=== PATIENT | male | born 1960 | race Caucasian/White ===

== ENCOUNTER 2018-03-24 13:31 | Observation (INO) | payer OTHER ==
[~2018-03-24] VITALS: Ht 177.8 cm; Wt 80.3 kg
[~2018-03-24 13:31] MED LIST: COZAAR 25 MG TA25 M1 PO; HUMALOG100 UNIT/1 SUBQ; LANTUS SUBQ; PERCOCET 5-3251 EACH PO; SIMVASTATIN5 MG
[2018-03-24 13:33] VITALS: BP 177/89
[2018-03-24] MEDS ORDERED: ZOCOR20 MG PO (13:38)
[2018-03-24 13:49] LABS: ABSOLUTE BASOPHILS 0.1 thou/uL (0.0-0.2); ABSOLUTE LYMPHOCYTES 1.7 thou/uL (0.8-5.3); ABSOLUTE MONOCYTES 0.5 thou/uL (0.0-1.2); ABSOLUTE NEUTROPHILS 8.7 thou/uL (1.6-8.1); BASOPHILS 0.6 %; EOSINOPHILS 0.4 %; HEMATOCRIT 42.3 % (42.0-52.0); HEMOGLOBIN 14.7 gm/dL (14.0-18.0); LYMPHOCYTES 15.5 %; MCH 34.7 pg (26.0-34.0); MCHC 34.8 g/dL (28.0-37.0); MONOCYTES 4.5 %; NUCLEATED RBCS 0 /100WBC; PLATELET COUNT* 298 thou/uL (150-400); RBC 4.23 mil/uL (4.50-6.00); RDW-CV 12.6 % (10.5-14.5)
[2018-03-24 13:58] LABS: ANION GAP 9 mmol/L (7-16); BUN 10 mg/dL (7-18); CALCIUM 9.3 mg/dL (8.5-10.1); CHLORIDE 107 mmol/L (98-107); CO2 27 mmol/L (21-32); CREATININE 0.8 mg/dL (0.6-1.3); GLUCOSE 146 mg/dL (70-99); POTASSIUM 3.8 mmol/L (3.5-5.1); SODIUM 143 mmol/L (136-145)
[2018-03-24 14:02] LABS: APTT 29.5 Seconds (25.0-31.3); INR 1.1; PROTIME 10.8 Seconds (9.20-11.50)
[2018-03-24 14:18] LABS: ALBUMIN 3.7 g/dL (3.4-5.0); ALKALINE PHOSPHATASE 60 U/L (46-116); CK-MB MASS 1.5 ng/mL (<0.5-3.6); LIPASE 35 U/L (73-393); MAGNESIUM 1.5 mg/dL (1.8-2.4); NT-PRO BRAIN NAT PEPTIDE 193 pg/mL (<300); SGOT 16 U/L (15-37); SGPT 24 U/L (30-65); TOTAL BILIRUBIN 0.5 mg/dL (<0.1-1.0); TOTAL PROTEIN 7.4 g/dL (6.4-8.2); TROPONIN-I LEVEL <0.06 ng/mL (<0.06)
[2018-03-24 15:16] VITALS: BP 136/80
[2018-03-24 15:30] VITALS: BP 149/76
[2018-03-24] MEDS ORDERED: METFORMIN HCL500 MG PO (15:49)
--- NOTE | 2018-03-24 16:03 | EKG ---
[place] [address] ELECTROCARDIOGRAM REPORT Name: TERRY SLATER Room: [address] IN [facility].#: [id number] Admission: 03/24/18 Attend Phys: Meme Barajas MD Discharge: Date of : 56 Report #: [id number] THIS REPORT FOR: //name// [facility] ED Test Date: 2018-03-24 Test Time: 13:34:30 Pat Name: TERRY SLATER Department: Room: Gender: Manager File: Mo HAYWOOD : 1960 Requested By: Jose Davidson Order Number: [id number] MD: Shiva Villafuerte Measurements Intervals [place] Rate: 77 P: 36 SC: 145 QRS: 48 QRSD: 104 T: -33 QT: 412 QTc: 467 Interpretive Statements Sinus rhythm Possible left atrial enlargement RSR' in V1 or V2, right VCD or RVH Borderline T abnormalities, inferior leads Compared to ECG 12/18/2010 07:40:46 Right ventricular hypertrophy now present RSR' in V1 or V2 now present Possible ischemia no longer present T-wave abnormality still present Electronically Signed On 03-24-2018 16:02:53 CDT by Shiva Villafuerte [email or web address] <ELECTRONICALLY SIGNED> By: Shiva Villafuerte MD, [facility] 03/24/18 1602 1334 1334 Shiva Villafuerte MD, [facility] /EPI
--- NOTE | 2018-03-24 17:10 | NUR ---
RECEIEVED REPORT FROM [facility] IN ED AND ASSUMED CARE OF PT @ 1530.PT IS A/O,VSS,TRACING SR ON THE MONITOR.LUNG SOUNDS ARE CLEAR.LAST BM WAS TODAY.IV LEFT AC PATENT AND SALINE LOCKED.PT IS CALM AND COOPERATIVE WITH NO C/O PAIN AT TIME OF ASSESSMENT.PT IS UP AD ROLAND IN ROOM.CALL LIGHT WITHIN REACH.WILL CONTINUE TO MONITOR.PT NPO STATUS UNTIL SEEN BY CARDIOLOGY.PT INFORMED OF PLAN OF CARE AND COMMUNICATES UNDERSTANDING.HOURLY ROUNDING COMPLETED FOR PT SAFETY.WILL CONTINUE TO MONITOR FOR DURATION OF SHIFT.
[2018-03-24 19:52] VITALS: BP 135/81
[2018-03-25] VITALS: BP 141/87
[2018-03-25 02:03] LABS: CHOLESTEROL 106 mg/dL (<200); HDL CHOLESTEROL 31 mg/dL (>40); LDL CHOLESTEROL 49 mg/dL (<100); TC:HDL 3.4 Ratio (Not establshd); TRIGLYCERIDE 130 mg/dL (<150); VLDL 26 mg/dL (<40)
[2018-03-25 02:04] LABS: SERUM ASSESSMENT Clear
[2018-03-25 04:00] VITALS: BP 140/77
--- NOTE | 2018-03-25 06:48 | NUR ---
Pt reports he is eager to get testing done today. No complaints overnight. VSS. NPO since MN. Will continue to monitor.
[2018-03-25 08:53] VITALS: BP 140/77
--- NOTE | 2018-03-25 11:41 | EKG ---
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: [place] : 1960 Requested By: Jose Davidson Order Number: [id number] MD: Payam Sosa Measurements Intervals [place] Rate: 61 P: 47 MS: 145 QRS: 62 QRSD: 113 T: -4 QT: 450 QTc: 454 Interpretive Statements Sinus rhythm Probable left atrial enlargement Borderline intraventricular conduction delay Compared to ECG 03/24/2018 13:34:30 no change Electronically Signed On 03-25-2018 11:40:49 CDT by Payam Sosa [email or web address] <ELECTRONICALLY SIGNED> By: Payam Sosa MD, [facility] 03/25/18 1140 38 38 Payam Sosa MD, [facility] /EPI
[2018-03-25 12:20] VITALS: BP 141/88
--- NOTE | 2018-03-25 12:22 | CARDNUC ---
[place] [address] CARDIAC NUCLEAR IMAGING REPORT Name: TERRY SLATER Room: [facility] IN [facility]#: [id number] Admission: 03/24/18 Attend Phys: Meme Barajas, Discharge: Date of : 56 Date of Service: 03/25/18 1222 Report #: [id number] THIS REPORT FOR: //name// APPROVED REPORT Study performed: 03/24/2018 17:54:00 Indication: Chest pain Patient Location: In-Patient Room #: 221 Stress Tech: Francheska Lanier Stress Nurse: Gricelda Orozco RN Ht: 5 ft 10 in Wt: 190 lbs BSA: 2.04 m2 BMI: 27.25 Medical History Medical History: CAD s/p OK, CAD s/p CABG, Hyperlipidemia, Diabetes Medications: atorvastatin, losartan, asa Allergies: No known drug allergies Cardiac Risk Factors: Age, DM, Hyperlipidemia, FHX of CAD Previous Cardiac Procedures: CABG, Myocardial infarction Exercise History: Sedentary Meds Held (24 hrs): - Resting Data Rest SPECT myocardial perfusion imaging was performed in supine position 30 minutes following the intravenous injection of 10.4 mCi of Tc-99m Sestamibi. Time of rest injection: 09:00 The images were gated to evaluate regional wall motion and calculate left ventricular ejection fraction. Administration Route: IV Administration Site: Left AC Pharmacologic Stress Pharmacologic stress test was performed by injecting Regadenoson 0.4 mg IV push over 10-15 seconds immediately followed by the intravenous injection of 35.8 mCi of Tc-99m Sestamibi. Time of stress injection: 10:35 Administration Route: IV Administration Site: Left AC Heart Rate at time of stress injection: 101 bpm. Gated Stress SPECT was performed 40 [place] [address] CARDIAC NUCLEAR IMAGING REPORT Name: TERRY SLATER Room: [address] IN ..#: [id number] Admission: 03/24/18 Attend Phys: Meme Barajas, Discharge: Date of : 56 Date of Service: 03/25/18 1222 Report #: [id number] injection. The images were gated to evaluate regional wall motion and calculate left ventricular ejection fraction. Prone imaging was performed. Stress Test Details Stress Test: Pharmacologic stress testing performed using 0.4 mg of regadenoson per 5 mL given IV over 10 seconds. Reason for pharmacologic stress test: physical limitation. HR Resting HR: 63 bpm Max Heart Rate (APMHR): 161 bpm Max HR Achieved: 101 bpm Target HR (85% APMHR): 136 bpm % of APMHR: 62 Recovery HR: 82 bpm BP Resting BP: 142/82 mmHg Max BP: 171/86 mmHg ECG Resting ECG: Sinus Rhythm Stress ECG: Sinus Rhythm ST Change: None Arrhythmia: None Recovery ECG: Sinus Rhythm Recovery ST Change: None Recovery Arrhythmia: None Clinical Reason for Termination: Completed protocol Stress Symptoms: None Exercise duration: 0 min sec Exercise capacity: 1.0 METs The patient tolerated Lexiscan infusion without significant symptoms. Stress ECG Conclusion The baseline 12-lead electrocardiogram showed sinus rhythm with no significant ST segment abnormalities. EKGs obtained during and post Lexiscan infusion showed sinus rhythm with no significant ST segment changes when compared to baseline. There were no stress-induced arrhythmias. Study Quality Study: [place] [address] CARDIAC NUCLEAR IMAGING REPORT Name: TERRY SLATER Room: [address]#: [id number] Admission: 03/24/18 Attend Phys: Meme Barajas, Discharge: Date of : 56 Date of Service: 03/25/18 1222 Report #: [id number] Artifact: No artifact Study Data At rest, the left ventricular ejection fraction was 74%.. Post stress, the left ventricular ejection was 64%.. TID = 0.90. Perfusion Normal left ventricular perfusion. Wall Motion Normal left ventricular wall motion. Nuclear Conclusion ECG Findings: negative for ischemia Clinical Findings: negative for ischemia Nuclear Findings: negative for ischemia Exercise Capacity: not assessed Left Ventricular Function: normal Risk Study: low Myocardial perfusion images show no defect to suggest infarct or ischemia. Left ventricular systolic function appears normal on gated studies. This is a low risk study. <Conclusion> The baseline 12-lead electrocardiogram showed sinus rhythm with no significant ST segment abnormalities. EKGs obtained during and post Lexiscan infusion showed sinus rhythm with no significant ST segment changes when compared to baseline. There were no stress-induced arrhythmias. <ELECTRONICALLY SIGNED> By: Shiva Villafuerte MD, [facility] 03/25/18 122 21 21 Shiva Villafuerte MD, FACC /INF
--- NOTE | 2018-03-25 13:55 | EKG ---
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: [place] : 1960 Requested By: Jose Davidson Order Number: [id number] Reading MD: Payam Sosa Measurements Intervals [place] Rate: 63 P: 52 RI: 153 QRS: 62 QRSD: 111 T: -11 QT: 463 QTc: 475 Interpretive Statements Sinus rhythm Atrial premature complex Probable left atrial enlargement Borderline T abnormalities, inferior leads Compared to ECG 03/24/2018 13:34:30 Atrial premature complex(es) now present T-wave abnormality still present Electronically Signed On 03-25-2018 13:55:40 CDT by Payam Sosa [email or web address] <ELECTRONICALLY SIGNED> By: Payam Sosa MD, [facility] 03/25/18 1355 0144 0144 Payam Sosa MD, [facility] /EPI
--- NOTE | 2018-03-25 14:15 | NUR ---
ASSUMED CARE OF PATIENT AFTER REPORT THIS MORNING. PATIENT AWAKE, ALERT, AND ORIENTED APPROPRIATELY. PHYSICAL ASSESSMENT COMPLETED AND CHARTED, ALONG WITH VITAL SIGNS, AFTER PATIENT RETURNED TO ROOM FROM STRESS TEST. VITAL SIGNS STABLE. OXYGEN SATURATION WITHIN NORMAL LIMITS ON ROOM AIR. PATIENT IS UP AD ROLAND. MOVED PATIENT TO HALLWAY THIS AFTERNOON DURING TORNADO DRILL. PATIENT RETURNED TO ROOM AFTER DRILL AND IS NOW AMBULATING THE HALLWAYS. USES CALL LIGHT APPROPRIATELY. DENIES NEEDS AT THIS TIME. CALL LIGHT WITHIN REACH. NURSING WILL CONTINUE TO MONITOR.
[2018-03-25 15:08] VITALS: BP 140/77
--- NOTE | 2018-03-25 15:52 | NUR ---
RECEIVED ORDERS TO DISCHARGE PATIENT TO HOME. DISCHARGE PAPERWORK COMPLETED AND DISCUSSED WITH PATIENT. ALSO DISCUSSED FOLLOW UP APPOINTMENTS AND HOME MEDICATIONS. IV DISCONTINUED AND HEART MONITOR RETURNED TO NURSE'S STATION. PATIENT DISCHARGED AT THIS TIME. ESCORTED TO FRONT DOOR BY RAKESH COPPOLA.
--- NOTE | 2018-03-30 18:18 | CON ---
[address] [address] CONSULTATION Name: TERRY SLATER Room: [address] Noreen Friedman#: [id number] Admission: 03/24/18 Attend Phys: Meme Barajas MD Discharge: 03/25/18 Date of : 56 Report #: [id number] THIS REPORT FOR: //name// CC: Meme Aguero DO DATE OF SERVICE: 03/24/2018 TYPE OF REPORT: Cardiology consultation. HISTORY OF PRESENT ILLNESS: The patient is a 57-year-old white male who came to the Emergency Room complaining of chest pain. The old records are not available. However, the patient states in 2006, he presented with chest pain and arm pain. He was transferred to [facility] by Dr. Caceres and heart catheterization. He was found to have multivessel coronary artery disease and underwent quadruple coronary bypass surgery using vein grafts. He has been followed by Dr. Dyer since that time. His last stress test was several years ago. He has not seen Dr. Dyer for the last couple of years. Recently, he has been having a lot of right knee pain. He is scheduled to have knee surgery at the surgery center. However, this afternoon, he is felt an ache in his chest occurred off and on. He denied any radiation to his pain. It is not related to meals. He had no belching or blood in stool. Denied any fever or cough. Denied associated shortness of breath or diaphoresis. He finally came to the emergency room this afternoon. He recently was in flew back on March 08. He denies exertional dyspnea, palpitations or syncope. PAST MEDICAL HISTORY: Otherwise significant for bilateral shoulder surgery. He has Achilles repaired in the past. He had knee arthroscopy. He has a history of diabetes and hyperlipidemia. MEDICATIONS: Include Humalog, metformin, Lipitor, aspirin and losartan. ALLERGIES: He has no known drug allergies. FAMILY HISTORY: His father had coronary bypass surgery. SOCIAL HISTORY: He is . He and his live in [place]. 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 His actually has a [employer] business. He quit smoking 10 years ago. No alcohol abuse. REVIEW OF SYSTEMS: He has had no history of stroke or asthma. He does note that after his bypass surgery, he was in the ICU for 3 days and developed ARDS. He has had a kidney stone. No peptic ulcer disease. He has had no cancer other than skin cancer. He has had [place] [address] CONSULTATION Name: TERRY SLATER Room: [address] Noreen Friedman#: [id number] Admission: 03/24/18 Attend Phys: Meme Barajas MD Discharge: 03/25/18 Date of : 56 Report #: [id number] PHYSICAL EXAMINATION: GENERAL: Revealed a middle-aged male lying in bed, he appeared in no distress. VITAL SIGNS: He had a blood pressure of 140/70, pulse 60 and he is afebrile. HEENT: He is anicteric. Conjunctivae are pink. Mucous members moist. NECK: Veins nondistended. No carotid bruits. Neck supple. CHEST: Clear to auscultation. CARDIOVASCULAR: Regular rhythm without murmur. ABDOMEN: Soft and nontender. EXTREMITIES: Had no edema. Posterior pulse 2+ bilaterally. SKIN: Warm and dry. NEUROLOGICAL: Nonfocal. LYMPHATIC: No adenopathy. MUSCULOSKELETAL: No joint effusion. RADIOLOGICAL DATA: ECG on admission today showed sinus rhythm with evidence of previous inferior infarction. His workup in the Emergency Room today, he had a chest x-ray that showed normal heart size, chronic interstitial lung changes. LABORATORY DATA: He had lab work that revealed BUN 10, creatinine 0.8 and glucose 146. Liver function studies were normal. Troponin 0.06. White blood cell count 11.0 and hemoglobin 14.3. IMPRESSION AND RECOMMENDATIONS: 1. Chest pain, history of coronary artery disease. Recommend pharmacologic nuclear stress testing since the patient cannot walk because of his arthritis. 2. Previous coronary artery bypass surgery. 3. Need for right knee surgery. I would hold off an elective surgery after the stress test. 4. Diabetes. The patient is on insulin. 5. Hyperlipidemia. The patient is on a statin drug. 6. Proteinuria. The patient uses an adrenergic receptor binder. 7. History of a kidney stone. <ELECTRONICALLY SIGNED> By: Payam Sosa MD, [facility] 03/30/18 1818 1752 [id number] Sosa MD, FACC /nt
== END 2018-03-25 15:54 | disposition home or self-care (01) ==
LOC: M.ERS 13:31 → M.2W 14:36 → M.TBA-ER 14:36 → M.2W 14:36
PROVIDERS: Family Medicine; Internal Medicine Cardiovascular Disease; ADMIT Internal Medicine
DX: R07.9 Chest pain, unspecified (principal); I25.10 Atherosclerotic heart disease of native coronary artery without angina pectoris; E11.9 Type 2 diabetes mellitus without complications; I10 Essential (primary) hypertension; E78.5 Hyperlipidemia, unspecified; R80.9 Proteinuria, unspecified; M19.90 Unspecified osteoarthritis, unspecified site; I25.2 Old myocardial infarction; Z95.5 Presence of coronary angioplasty implant and graft; Z79.4 Long term (current) use of insulin; Z72.89 Other problems related to lifestyle

== ENCOUNTER → 2018-04-16 | Outpatient (CLI) | payer OTHER ==
[~2018-04-16] MED LIST changes: +METFORMIN HCL500 MG PO; +ZOCOR20 MG PO
--- NOTE | 2018-04-16 14:32 | 2DMMODE ---
[place] [address] 2 D/M-MODE ECHOCARDIOGRAM Name: TERRY SLATER Room: [facility]#: [id number] Admission: 04/16/18 Attend Phys: Shiva Villafuerte, Discharge: Date of : 56 Date of Service: 04/16/18 1432 Report #: [id number] THIS REPORT FOR: //name// APPROVED REPORT Study performed: 04/16/2018 13:44:37 EXAM: Comprehensive 2D, Doppler, and color-flow Echocardiogram Patient Location: Out-Patient Status: routine BSA: 2.03 HR: 78 bpm BP: 142/82 mmHg Other Information Study Quality: Good Indications CAD 2D Dimensions LVEF(%): 71.94 (>50%) IVSd: 12.17 (7-11mm) LVOT Diam: 20.57 (18-24mm) LVDd: 48.03 mm PWd: 11.53 (7-11mm) Ascending Ao: 35.29 (22-36mm) LVDs: 28.26 (25-40mm) Aortic Root: 29.90 mm Omer's LVEF: 71.94 % Volumes Left Atrial Volume (Systole) LA ESV Index: 14.40 mL/m2 Aortic Valve AoV Peak Robert.: 1.28 m/s AO Peak Gr.: 6.59 mmHg LVOT Max P.00 mmHg AO Mean Gr.: 3.22 mmHg LVOT Mean P.18 mmHg LVOT Max V: 1.12 m/s AO V2 VTI: 19.60 cm LVOT Mean V: 0.67 m/s KAYCEE (VTI): 4.18 cm2 LVOT V1 VTI: 24.64 cm Mitral Valve E/A Ratio: 0.74 MV Decel. Time: 236.20 [place] [address] 2 D/M-MODE ECHOCARDIOGRAM Name: TERRY SLATER Room: [facility]#: [id number] Admission: 04/16/18 Attend Phys: Shiva Villafuerte, Discharge: Date of : 56 Date of Service: 04/16/18 1432 Report #: [id number] MV E Max Robert.: 0.54 m/s MV PHT: 68.50 ms MVA (PHT): 3.21 cm2 TDI E/Lateral E': 4.91 E/Medial E': 7.71 Medial E' Robert.: 0.07 m/s Lateral E' Robert.: 0.11 m/s Pulmonary Valve PV Peak Robert.: 1.06 m/s PV Peak Gr.: 4.50 mmHg Left Ventricle The left ventricle is normal size. There is normal LV segmental wall motion. Mild concentric left ventricular hypertrophy. Left ventricular systolic function is normal. The left ventricular ejection fraction is within the normal range. LVEF is 55-60%. Grade I - abnormal relaxation pattern. Right Ventricle The right ventricle is normal size. The right ventricular systolic function is normal. Atria The left atrium size is normal. The right atrium size is normal. Aortic Valve The Aortic valve is sclerotic. No aortic regurgitation is present. There is no aortic valvular stenosis. Mitral Valve The mitral valve is normal in structure. There is no mitral valve regurgitation noted. No evidence of mitral valve stenosis. Tricuspid Valve The tricuspid valve is normal in structure. There is no tricuspid valve regurgitation noted. Pulmonic Valve The pulmonary valve is normal in structure. Mild pulmonic regurgitation. Great Vessels The aortic root is normal in size. IVC is normal in size and collapses with >50% [place] [address] 2 D/M-MODE ECHOCARDIOGRAM Name: TERRY SLATER Room: [facility]#: [id number] Admission: 04/16/18 Attend Phys: Shiva Villafuerte, Discharge: Date of : 56 Date of Service: 04/16/18 1432 Report #: [id number] Pericardium There is no pericardial effusion. <Conclusion> Mild concentric left ventricular hypertrophy. LVEF is 55-60%. The Aortic valve is sclerotic. <ELECTRONICALLY SIGNED> By: Payam Sosa MD, [facility] 04/16/18 143 143 143 Payam Sosa MD, FAC /INF
== END ==
LOC: M.CRD 13:35
DX: I37.1 Nonrheumatic pulmonary valve insufficiency (principal); I51.7 Cardiomegaly; I25.10 Atherosclerotic heart disease of native coronary artery without angina pectoris